=== PATIENT | female | born 1955 | race Caucasian/White ===

== ENCOUNTER 2024-05-22 07:01 | Day surgery (SDC) | payer OTHER ==
[2024-05-19 16:04] LABS: Absolute Eosinophils 0.1 K/uL (0-0.5); Absolute Monocytes 0.5 K/uL (0.1-1.3); Absolute Neutrophil 4.2 K/uL (1.8-8.0); Basophils % 0.6 % (0-1.3); Hematocrit 36.5 % (36.0-45.0); Hemoglobin 11.8 g/dL (12.0-15.0); Lymphocytes % 29.2 % (15.3-44.8); MCH 29.2 pg (27.0-35.0); MCHC 32.5 g/dL (32.0-36.0); MCV 89.8 fL (80-100); MPV 7.8 fL (7.6-11.3); Monocytes % 7.4 % (3.3-12.3); Neutrophils % 60.8 % (41.7-73.7); Platelets 227 thou/uL (152-406); RBC Red Blood Cell Count 4.06 M/uL (3.86-4.86); Red Cell Distribution Width 18.6 % (12.1-15.2)
[2024-05-19 16:12] LABS: PT Prothrombin Time 11.2 SECONDS (9.4-12.5); PTT, Activated Partial Thromb 34.5 SECONDS (24.3-36.9)
[2024-05-19 16:22] LABS: Anion Gap 8.7 mEq/L (5.0-15.0); Potassium 3.7 mEq/L (3.5-5.1)
[2024-05-19 17:11] LABS: Blood Morphology Comment NOT SEEN (NOT SEEN); Platelet Estimate ADEQ; White Blood Cell Scan OK (OK)
[2024-05-22] MEDS ORDERED: Ringers Lactate 1,000 ML IV ONE ×2 (07:22→13:01)
[2024-05-22] MEDS ORDERED: CIPROFLOXACIN 400mg IV 400 MG/200 ML BAG IV ONE (09:33)
[2024-05-22] MEDS ORDERED: METHYLENE BLUE 1% 10 ML VIAL ONE (10:08)
[2024-05-22] MEDS ORDERED: FENTANYL CITR 100 MCG/2 ML ONE ×2 (12:32→14:16)
[2024-05-22] MEDS ORDERED: LIDOCAINE 1% MPF 5 ML VIAL ONE (12:32)
[2024-05-22] MEDS ORDERED: ONDANSETRON 4 MG/2 ML VIAL ONE (12:32)
[2024-05-22] MEDS ORDERED: MIDAZOLAM HCL 2 MG/2 ML INJ ONE (12:32)
[2024-05-22] MEDS ORDERED: propofoL 200 MG/20 ML VIAL IV ONE (12:32)
--- NOTE | 2024-05-22 12:37 | RAD REPORT ---
EXAM DESCRIPTION: [facility] BRE[facility]AL[facility] - 05/22/2024 9:52 am CLINICAL HISTORY: LUMPECTOMY COMPARISON: 3D DIAG UNI F/U dated 03/29/2024; 3D SCR NAILA BILAT W/CAD dated 02/24/2024; 3D SCR NAILA BILA T W/CAD dated 04/17/2022 FINDINGS: Preoperative diagnosis: DCIS left breast. Post operative diagnosis: Same. Conscious Sedation: None Fluoroscopy time: None Contrast used: None Estimated blood loss: Minimal The left breast was prepped and draped in the usual sterile fashion. 1% lidocaine was infiltrated int o the subcutaneous tissues for local anesthesia. Under mammographic guidance, preoperative wire local ization was performed. The wires seen to traverse the area of calcifications as well as the post biop sy clip. The position of the wire were discussed in detail with Dr. Mcgovern. IMPRESSION: Technically successful preoperative left breast wire localization for surgery.
[2024-05-22] MEDS ORDERED: KETOROLAC 30 MG/ML INJ ONE (13:27)
[2024-05-22] MEDS ORDERED: GLYCOPYRROLATE 0.2 MG/ML SYR ONE (13:38)
--- NOTE | 2024-05-22 13:47 | P.BOP ---
Preoperative diagnosis: left breast atypical ductal hyperplasia Postoperative diagnosis: same Primary procedure: Left breast lumpectomy needle localized Estimated blood loss: <10cc Specimen: lump with needle Anesthesia: General Complications: None Transferred to: Recovery Room Condition: Good
[2024-05-22 14:47] VITALS: O2SAT 100
--- NOTE | 2024-05-22 15:05 | RAD REPORT ---
EXAM DESCRIPTION: [facility] BREAST TISSUE SAMPLE - 05/22/2024 2:48 pm CLINICAL HISTORY: ICD R92.8 abnormal microcalcifications FINDINGS: Biopsy clip and suspicious microcalcifications lie within the resected breast tissue IMPRESSION: Biopsy clip and suspicious microcalcifications lie within the resected breast tissue. The results were discussed with Dr Martinez at approximately 2:54 p.m. on May 22, 2024
[2024-05-22 16:00] VITALS: BP 153/94; TEMP 98.4
--- NOTE | 2024-05-23 05:45 | OP ---
Date of Procedure: 05/22/2024 Surgeon: Vitor Mcgovern MD Preoperative Diagnosis: Left breast atypical ductal hyperplasia. Postoperative Diagnosis: Left breast atypical ductal hyperplasia. Procedure: Left breast lumpectomy, needle localized. Estimated Blood Loss: Less than 10 cc. Anesthesia: General plus local. Specimen: Lump with needle as per radiologist. Complications: None. Findings: Lesion within the specimen by Dr. Hawkins. Indications: This is a case of a 68-year-old patient who comes to us with a findings that require co re biopsy, found to have atypical ductal hyperplasia and formal surgical excision was recommended. T he benefits, alternatives, and risks of excisional biopsy of left breast lumpectomy, needle localized fully explained, which include, but not limited to infection, bleeding, damage to adjacent structure s, anesthesia complication, recurrence, [place], and . She also understands this may not relieve any symptoms. She might need more than one surgical intervention. She understood, signed a consent. She came this morning to the Radiology suite which she had localization of the lesion with the help o f imaging. She was wheeled to the OR directly making sure the wire is left intact to avoid dislodgem ent. Description Of Procedure: The patient was brought to the operating room, placed in supine position. Anesthesia was done without complication. The left breast was prepped and draped in sterile fashion making sure once again the wire was intact. A time-out was called. Local anesthesia was applied, f ollowed by a curvilinear incision to include the guidewire area. They did after that. The breast ti ssue was held together with the help of the [place] and the lump around the guidewire was removed. The specimen sent to the radiologist who confirmed the lesion within the specimen. Before closure, we m navya sure we have complete hemostasis. Sponge count and instrument counts correct and then we used 3- 0 chromic for closure with a combination also with a 4-0 Monocryl. Steri-Strips placed over the area . Patient tolerated the procedure well. Patient sent to recovery in stable condition. Condition: Stable. Disposition: Home. Activity: As tolerated. No heavy lifting. Follow up in my office in 1 week. Call for appointment [phone]. The patient advised to keep the area clean. Use breast support at all times even during s leep. HM/BROOKEL Voice ID: [id number] Report ID: [id number]
== END 2024-05-22 15:55 | disposition home or self-care (01) ==
LOC: OR 07:01
PROVIDERS: ATTEND Surgery
PROC: 0HBU0ZZ Excision of Left Breast, Open Approach (ICD-10-PCS; principal; 2024-05-22 11:30)
DX: N60.92 Unspecified benign mammary dysplasia of left breast (principal); N64.89 Other specified disorders of breast
CPT/HCPCS: 19301; 85025; 80048; 36415; 85610; 88307; 85730; 76098; 19281; J2704; J2001; J2250; J3010 ×2; J2405; J0744; J7120 ×2; 88305

== ENCOUNTER 2024-05-26 07:54 | Day surgery (SDC) | payer OTHER ==
[2024-05-26] MEDS ORDERED: Ringers Lactate 1,000 ML IV ONE ×2 (08:17→10:55)
[2024-05-26] MEDS ORDERED: CLINDAMYCIN 900MG/D5W 900 MG/50 ML IVPB IV ONE ×2 (08:17→08:54)
[2024-05-26] MEDS ORDERED: LIDOCAINE HCL/EPINEPHRINE 20 ML MDV ONE (08:44)
[2024-05-26] MEDS ORDERED: dexAMETHasone 10 MG/ML VIAL ONE (09:44)
[2024-05-26] MEDS ORDERED: LIDOCAINE 1% MPF 5 ML VIAL ONE (09:44)
[2024-05-26] MEDS ORDERED: ONDANSETRON 4 MG/2 ML VIAL ONE (09:44)
[2024-05-26] MEDS ORDERED: ROCURONIUM 50 MG/5 ML VIAL IV ONE (09:44)
[2024-05-26] MEDS ORDERED: propofoL 200 MG/20 ML VIAL IV ONE (09:44)
[2024-05-26] MEDS ORDERED: MIDAZOLAM HCL 2 MG/2 ML INJ ONE (09:44)
[2024-05-26] MEDS ORDERED: FENTANYL CITR 100 MCG/2 ML ONE (10:00)
[2024-05-26] MEDS ORDERED: EPHEDRINE SULF 50 MG/ML VIAL ONE (10:17)
[2024-05-26] MEDS: HYDROMORPHONE HCL 1 MG/ML INJ ONE (12:01)
--- NOTE | 2024-05-26 12:08 | P.OP ---
Training Associate: Dali Burks Preoperative diagnosis: obstructive sleep apnea Postoperative diagnosis: same Primary procedure: hyoid myotomy and suspension Anesthesia: general Estimated blood loss: 5ml Specimen: none Findings: advancement of hyoid by 18mm Operative Technique: The patient was positioned in a supine position with a shoulder roll with support of the head. The neck was cleaned with alcohol and the planned incision sites were injected with 1% lidocaine with epinephrine. The landmarks including the cricoid and thyroid cartilages were palpated. The hyoid bone was palpated. Planned incisions sites were drawn in the submental area and overlying the hyoid bone. The neck was prepped with Betadine and draped in a sterile fashion. The submental incision was incised using a 15 blade scalpel and the subcutaneous tissues was divided with Bovie electrocautery. Hemostasis was achieved and soft tissue was dissected down to the mandible. A Fairplay elevator was used to judiciously clear soft tissue to the medial surface of the genial tubercle. The midline was marked and planned bone anchor sites were placed 1 cm lateral to the right and left of midline. A short cutting drill was used to make banana carrier holes at the planned bone anchor sites with copious irrigation. The banana carrier holes were irrigated and the bone anchors were placed in the right and left banana carrier holes and tightened with orientation of the ties and a 6 and 12 o'clock position. The ties were secured to the drape with a hemostat and the area was inspected. This surgical site was felt to be hemostatic and attention was turned to the inferior incision. The marked site overlying the hyoid bone was incised using a 15 blade scalpel and the subcutaneous tissues were divided using Bovie electrocautery. Judicious dissection was carried down to the level of the hyoid with retraction provided by send trach followed by [employer] retractors.. The inferior aspect of the hyoid was cleared using a Fairplay elevator. A cricoid hook was placed at the inferior border of the hyoid and used to elevate the hyoid. The revolution suture passer was passed from the inferior border of the hyoid ar ound to the superior aspect hyoid and threaded with the white and blue retaining sutures with the assistance of the wire thread passer. Once threaded, the suture passer was rotated to pull the loose ends of the retaining sutures to the inferior aspect of the hyoid. Both the blue and red retaining sutures were then secured to the hyoid using a girth hitch. Using a tonsil clamp, a tunnel was created in the subplatysmal plane on the right starting near the right bone anchor through the superior incision and angling towards midline portion of the inferior incision. The white suture was then grasped and passed through this small tunnel to the right aspect of the superior incision. The bone anchors were slightly loosened and the right and left retaining sutures were threaded through the bone anchors using the preloaded threaders. The shoulder roll was then removed and the head was placed in a neutral position. The retaining sutures were tied with a single knot for reference. Both retaining sutures were simultaneously pulled forward and the amount of advancement was about 18 mm. The bone anchors were then secured using the hex screwdriver and securing knots were tied over the bone screws and the excess retaining suture was cut. The wound was irrigated with sterile saline and both incisions were closed in a layered fashion using 3-0 Vicryl deep sutures and 4-0 Monocryl subcuticular sutures. All counts were correct at the conclusion of the case and the patient was returned to anesthesia for awakening and extubation in the OR which proceeded without difficulty. Once the patient was stable in the PACU, the incisions were covered with a gauze dressing and the jaw bra was applied. Disposition: The patient will be discharged home later today in the care of her family. They are encouraged to use CPAP for continued treatment of their sleep apnea if feasible. The jaw bra may be removed for bathing or showering but should be worn continuously outside of these activities until the postoperative visit on day 10. The patient is instructed to contact Dr. Kumar's office for any abnormal swelling, bruising, difficulty swallowing or change in breathing. Complications: None Implants: bone anchors and threads Fluids & blood products: See anesthesia record Transferred to: Recovery Room Condition: Good
[2024-05-26] MEDS: MORPHINE 4 MG/ML SYR ONE (12:11)
[2024-05-26] MEDS: HYDROCODONE/APAP 10/325 TAB ONE (13:11)
[2024-05-26 13:33] VITALS: BP 142/59; TEMP 97.4; O2SAT 100
== END 2024-05-26 13:45 | disposition home or self-care (01) ==
LOC: OR 07:54
PROVIDERS: ATTEND Otolaryngology
PROC: 0K830ZZ Division of Left Neck Muscle, Open Approach (ICD-10-PCS; principal; 2024-05-26 09:15)
DX: G47.33 Obstructive sleep apnea (adult) (pediatric) (principal)
CPT/HCPCS: 21685 ×2; J2704; J2001; J2250; J3010; J1100; J1170; J2405; J7120 ×2

== ENCOUNTER → 2024-10-10 | Day surgery (SDC) | payer OTHER ==
--- NOTE | 2024-10-10 18:17 | RAD REPORT ---
THYROID NODULE FNA PREPROCEDURE DIAGNOSIS: thyroid nodule. E04.1 PROCEDURE: thyroid nodule FNA. SPECIMEN: 5 - 25-gauge FNA specimens of the left thyroid nodule. TECHNIQUE: Prior to the procedure , the risks and benefits of a thyroid FNA were explained with the patient alli pina consented fully to the procedure. Real-time ultrasound was used to identify the thyroid nodule of interest. The neck was then prepped and draped in the usual sterile fashion. Lidocaine was used to anesthetize the skin and soft tissues down towards the thyroid nodule. 5 separa te 25-gauge needles were then placed using ultrasound guidance into the nodule and specimen was obtained within the needle using a to and fro motion. These needles were placed in solution provided by pathology. The patient tolerated the procedure well without immediate post procedure complication. IMPRESSION: Ultrasound-guided fine-needle aspiration left thyroid nodule
== END ==
LOC: FNA 08:00
PROVIDERS: ATTEND Otolaryngology
PROC: 0G9G3ZX Drainage of Left Thyroid Gland Lobe, Percutaneous Approach, Diagnostic (ICD-10-PCS; principal; 2024-10-10)
DX: E04.1 Nontoxic single thyroid nodule (principal)
CPT/HCPCS: 88162